=== PATIENT | male | born 1975 | race Caucasian/White ===

== ENCOUNTER 2016-11-24 19:21 | Emergency (ER) | payer OTHER ==
[2016-11-24 19:30] VITALS: BP 150/108; PULSE 78; TEMP 98.5; BMI 29.7
[2016-11-24 20:20] LABS: MCH 31.7 pg (25.7-33.7); MEAN CELL VOLUME 93.2 fl (80-96); MEAN PLT VOLUME 7.6 fl (7.5-11.1); PLATELET COUNT 244 K/MM3 (134-434); RDW 13.4 % (11.9-15.9); WHITE BLOOD COUNT 7.8 K/mm3 (4.0-10.0)
[2016-11-24 20:59] LABS: PLATELET ESTIMATE ADEQUATE (NORMAL)
--- NOTE | 2016-11-24 22:13 | PDOC ---
Attending Attestation - HPI HPI: 11/24/16 22:19 Pt is a 41 yo M with a PMHx of HLD who presents to the ED with sudden onset of R sided headache today. Today, patient states he bent forward, suddenly stood back up and became dizzy for 10 minutes. Subsequently, patient developed R sided headache, 7/10 in severity, constant, nonradiating. Patient reports associated sound sensitivity and lightheadedness but denies any vision changes, nausea or vomiting. Patient denies any numbness or weakness. Patient reports taking ibuprofen however denies any relief. Patient has never experienced this headache before and presents to the ED for further evaluation. Note,patient reports recent stressors in his personal life. - Medical Decision Making 11/24/16 22:19 Documentation prepared by Kiya Mathew, acting as medical language specialist for Goyo Brown DO. <Kiya Mathew - Last Filed: 11/24/16 22:19> - Resident Resident Name: Meredith Chappell - ED Attending Attestation I have performed the following: I have examined & evaluated the patient, The case was reviewed & discussed with the resident, I agree w/resident's findings & plan, Exceptions are as noted - Physicial Exam PE: 11/24/16 22:17 *Physical Exam General Appearance: Yes: Appropriately Dressed. No: Apparent Distress, Intoxicated HEENT: positive: EOMI, ROSENDO, Normal ENT Inspection, Normal Voice, TMs Normal, Pharynx Normal. negative: Pale Conjunctivae, Photophobia, Scleral Icterus (R), Scleral Icterus (L) Neck: positive: Trachea midline, Normal Thyroid, Supple. negative: Tender, Rigid, Carotid bruit, Stridor, Lymphadenopathy (R), Lymphadenopathy (L), Thyromegaly Respiratory/Chest: positive: Lungs Clear, Normal Breath Sounds. negative: Chest Tender, Respiratory Distress, Accessory Muscle Use, Labored Respiration, RES, Crackles, Rales, Rhonchi, Stridor, Wheezing, Dullness Cardiovascular: positive: Regular Rhythm, Regular Rate, S1, S2. negative: Edema , JVD, Murmur, Bradycardia, Tachycardia Vascular Pulses: Dorsalis-Pedis (R): 2+, Doralis-Pedis (L): 2+ Gastrointestinal/Abdominal: positive: Normal Bowel Sounds, Flat, Soft. negative : Tender, Organomegaly, Pulsatile Mass, Increased Bowel Sounds, Decreased BS, Distended, Guarding, Rebound, Hernia, Hepatomegaly, Spleenomegaly Lymphatic: negative: Adenopathy, Tenderness Musculoskeletal: positive: Normal Inspection. negative: CVA Tenderness, Decreased Range of Motion Extremity: positive: Normal Capillary Refill, Normal Inspection, Normal Range of Motion, Pelvis Stable. negative: Tender, Pedal Edema, Swelling, Erythema Integumentary: positive: Normal Color, Dry, Warm. negative: Cyanotic, Erythema , Jaundice, Rash Neurologic: positive: chief controller center II-XII NML intact, Fully Oriented, Alert, Normal Mood/ Affect, Motor Strength 5/5. negative: EOM Palsy, Facial Droop, Sensory Deficit <Goyo Brown - Last Filed: 11/25/16 00:18> Discharge Disposition - Discharge Dispostion Admit: No <Goyo Brown - Last Filed: 11/25/16 00:18> - Diagnosis Dizziness - Discharge Dispostion Disposition: HOME Condition at time of disposition: Stable - Referrals Referrals: Luis Foy MD [Primary Care Provider] - Antwan Zapata MD [Staff Physician] - - Patient Instructions Printed Discharge Instructions: DI for Dizziness-Nonvertigo
--- NOTE | 2016-11-24 22:19 | PDOC ---
History of Present Illness - General Chief Complaint: Headache Stated Complaint: FATIGUE Time Seen by Provider: 11/24/16 21:34 History Source: Patient Exam Limitations: No Limitations - History of Present Illness Initial Comments: This is a 41 yom with h/o HLD (on atorvastatin) who p/w lightheadedness and right-sided headache. He has been very stressed at work and with his relationship lately, did not eat or drink enough today, and describes an event today at 1730 where he stood up suddenly after bending over to work on his car, became lightheaded for 10 minutes, and had a subsequent onset of headache. The headache is 7/10, constant, dull, diffuse on the right side of his head from the front to the back of the head, non-radiating, and worsened by noise but not light. He took ibuprofen for it without relief. He denies any numbness, tingling , weakness, balance/walking problems, speech or vision changes, fever, chills, nausea, vomiting, diarrhea, constipation, recent cough/sore throat/runny nose/ ear pain, or other symptoms. Past History - Past Medical History Allergies/Adverse Reactions: Allergies Allergy/AdvReac Type Severity Reaction Status Date / Time No Known Allergies Allergy Verified 11/24/16 19:26 - Suicide/Smoking/Psychosocial Hx Smoking History: Never smoked Review of Systems - Review of Systems Constitutional: No: Chills, Fever, Unexplained wgt Loss HEENTM: No: Nose Congestion, Throat Pain Respiratory: No: Cough, Shortness of Breath Cardiac (ROS): No: Chest Pain, Palpitations ABD/GI: No: Constipated, Diarrhea, Nausea, Vomiting : No: Burning, Dysuria Musculoskeletal: No: Back Pain, Neck Pain Integumentary: No: Bruising, Rash Neurological: Yes: Headache, Other (lightheaded (resolved)). No: Numbness, Tingling, Weakness Psychiatric: Yes: Anxiety, Stressors Endocrine: No: Unexplained Weight Gain, Unexplained Weight Loss *Physical Exam - Vital Signs Last Vital Signs Temp Pulse Resp BP Pulse Ox 98.5 F 78 18 150/108 97 11/24/16 19:26 11/24/16 19:26 11/24/16 19:26 11/24/16 19:26 11/24/16 19:26 - Physical Exam General Appearance: Yes: Nourished, Appropriately Dressed, Other (anxious but well-appearing and conversive and answering questions appropriately). No: Apparent Distress HEENT: positive: EOMI, Normal Voice, Hearing Grossly Normal. negative: Scleral Icterus (R), Scleral Icterus (L), Nasal Congestion Neck: positive: Trachea midline, Supple. negative: Tender, Rigid Respiratory/Chest: positive: Lungs Clear, Normal Breath Sounds. negative: Respiratory Distress, Crackles, Rhonchi, Stridor, Wheezing Cardiovascular: positive: Regular Rhythm, Regular Rate. negative: Murmur Gastrointestinal/Abdominal: positive: Normal Bowel Sounds, Soft. negative: Tender, Organomegaly, Pulsatile Mass, Guarding Musculoskeletal: positive: Normal Inspection. negative: Decreased Range of Motion, Vertebral Tenderness Extremity: positive: Normal Capillary Refill, Normal Inspection, Normal Range of Motion. negative: Tender, Cyanosis Integumentary: positive: Normal Color, Dry, Warm. negative: Erythema, Rash, Bruising Neurologic: positive: patient services technician II-XII NML intact, Fully Oriented, Alert, Normal Mood/ Affect, Normal Response, Motor Strength 5/5, Finger to Nose (normal). negative : EOM Palsy, Facial Droop, Numbness, Sensory Deficit, Confused, Disoriented ED Treatment Course - LABORATORY CBC & Chemistry Diagram: 11/24/16 20:06 11/24/16 20:06 - ADDITIONAL ORDERS Additional order review: Laboratory Results 11/24/16 20:06 Sodium Cancelled Potassium Cancelled Chloride Cancelled Carbon Dioxide Cancelled Anion Gap Cancelled BUN Cancelled Creatinine Cancelled Creat Clearance w eGFR Cancelled Random Glucose Cancelled Calcium Cancelled Total Bilirubin Cancelled AST Cancelled ALT Cancelled Alkaline Phosphatase Cancelled Total Protein Cancelled Albumin Cancelled 11/24/16 20:06 RBC 4.84 MCV 93.2 MCHC 34.0 RDW 13.4 MPV 7.6 Neutrophils % No Result Required. Lymphocytes % No Result Required. - RADIOLOGY Radiology Studies Ordered: Head CT wo contrast without e/o acute intracranial pathology per [facility] read. Medical Decision Making - Medical Decision Making 41 yom p/w lightheadedness followed by right-sided headache persisting since 5: 30 pm. Neurologically intact on exam, no nystagmus, otherwise normal exam but does appear anxious. DDX includes but not limited to migraine, tension headache, ICH or other intracranial lesion, BPPV, etc. Ordered is head CT WO contrast, CBCD, CMP. On preliminary emergency room read, head CT does not show overt e/o acute intracranial pathology. CBCD returns unremarkable. Initial CMP is hemolyzed; repeat is offered to the patient but he defers and states preference to f/u as OP. Pt opts to go home and follow up as outpatient. Return precautions are discussed. *DC/Admit/Observation/Transfer Diagnosis at time of Disposition: Dizziness Headache Qualifiers: Headache type: unspecified Headache chronicity pattern: unspecified pattern Intractability: not intractable Qualified Code(s): R51 - Headache - Discharge Dispostion Disposition: HOME Condition at time of disposition: Stable Admit: No - Referrals Referrals: Antwan Zapata MD [Staff Physician] - Luis Foy MD [Primary Care Provider] - - Patient Instructions Printed Discharge Instructions: DI for Dizziness-Nonvertigo
== END 2016-11-25 00:40 | disposition home or self-care (01) ==
LOC: JER 19:21
DX: R42 Dizziness and giddiness (principal); E78.5 Hyperlipidemia, unspecified
CPT/HCPCS: 36415; 70450-TC; 85025; 99281-25